=== PATIENT | female | born 1995 | race African-American/Black ===

== ENCOUNTER 2018-02-26 06:18 | Emergency (ER) | payer MEDICAID ==
[~2018-02-26] VITALS: Ht 165.1 cm; Wt 49.0 kg
[2018-02-26] MEDS ORDERED: SODIUM CHLORIDE 0.9% 1,000 ML IV ONE (07:04)
[2018-02-26 07:38] LABS: CLARITY URINE CLEAR (CLEAR); COLOR URINE YELLOW (YELLOW); KETONES URINE NEGATIVE (NEGATIVE); OCCULT BLOOD URINE NEGATIVE (NEGATIVE); PH URINE 5.5 (4.5-8.0); PROTEIN URINE NEGATIVE (NEGATIVE); SPECIFIC GRAVITY URINE 1.015 (1.005-1.030)
[2018-02-26 07:39] LABS: LEUKOCYTE ESTERASE URINE 1+ (NEGATIVE); NITRITE URINE NEGATIVE (NEGATIVE); UROBILINOGEN URINE 0.2 E.U./dL (0.2-1.0)
[2018-02-26 08:24] LABS: BASOPHILS % 0.7 % (0.0-2.0); EOSINOPHILS % 1.4 % (0.0-5.0); HEMATOCRIT. 47.1 % (36.0-48.0); HEMOGLOBIN. 15.8 g/dL (12.0-16.0); LYMPHOCYTES % 26.9 % (20.0-50.0); MEAN CORPUSCULAR HEMOGLOBIN 29.4 pg (28.0-32.0); MEAN CORPUSCULAR VOLUME 87.9 fL (81.0-99.0); MEAN PLATELET VOLUME 8.5 fl (7.4-10.4); MONOCYTES % 6.7 % (2.0-8.0); NEUTROPHILS % 64.3 % (40.0-76.0); PLATELET 268 x1000/uL (130-400); RED BLOOD CELL COUNT 5.36 mill/uL (4.2-5.4); RED CELL DISTRIBUTION WIDTH 13.2 % (11.6-14.6)
[2018-02-26 08:27] LABS: CHLORIDE 107 mEq/L (98-107)
[2018-02-26] MEDS ORDERED: PHENAZOPYRIDINE HCL 200MG TABLET PO ONE (08:45)
[2018-02-26] MEDS ORDERED: CEFTRIAXONE 1 G PREMIX 50 ML IV ONE (08:45)
[2018-02-26] MEDS ORDERED: KETOROLAC 30MG/ML VIAL IV ONE (08:45)
[2018-02-26 09:20] LABS: HCG SCREEN NEGATIVE
[2018-02-26 10:40] VITALS: BP 110/72
== END 2018-02-26 10:41 | disposition home or self-care (01) ==
LOC: ER 06:18
DX: R10.2 Pelvic and perineal pain (principal); N39.0 Urinary tract infection, site not specified
CPT/HCPCS: 36415; 80053; 81003; 81025; 83690; 84703; 85025; 87077; 87086; 96365; 96375; 99284; J0696; J1885; J7030

== ENCOUNTER 2018-03-29 07:11 | Emergency (ER) | payer MEDICAID ==
[~2018-03-29] VITALS: Ht 162.6 cm; Wt 50.0 kg
[2018-03-29] MEDS ORDERED: IBUPROFEN 600MG TABLET PO ONE (10:45)
[2018-03-29 10:57] VITALS: BP 105/74
== END 2018-03-29 12:15 | disposition home or self-care (01) ==
LOC: ER 07:37
DX: M72.2 Plantar fascial fibromatosis (principal); M79.672 Pain in left foot; F12.10 Cannabis abuse, uncomplicated
CPT/HCPCS: 73630; 81025; 99284